=== PATIENT | male | born 1970 | race Caucasian/White ===

== ENCOUNTER 2017-10-07 13:31 | Emergency (ER) | payer SELFPAY ==
[~2017-10-07] VITALS: Ht 170.2 cm; Wt 66.0 kg
[2017-10-07] MEDS ORDERED: PERCOCET 5/31 TABLET PO (15:32)
[2017-10-07 15:59] VITALS: BP 190/104
== END 2017-10-07 16:03 | disposition home or self-care (01) ==
LOC: EME 13:31
PROC: 2W3CX1Z Immobilization of Right Lower Arm using Splint (ICD-10-PCS; principal; 2017-10-07)
DX: S62.394A Other fracture of fourth metacarpal bone, right hand, initial encounter for closed fracture (principal); S62.396A Other fracture of fifth metacarpal bone, right hand, initial encounter for closed fracture; V49.9XXA Car occupant (driver) (passenger) injured in unspecified traffic accident, initial encounter; Y92.410 Unspecified street and highway as the place of occurrence of the external cause; F17.200 Nicotine dependence, unspecified, uncomplicated; Z87.19 Personal history of other diseases of the digestive system
CPT/HCPCS: 73130; 99281; 99284